=== PATIENT | female | born 1940 ===

== ENCOUNTER 2020-08-08 17:07 | Emergency (ER) | payer SELFPAY ==
[~2020-08-08] VITALS: Ht 167.6 cm; Wt 46.5 kg
[2020-08-08 18:19] LABS: BASO % 0 % (0-3); EOS % 0 % (0-3); HEMATOCRIT 40.5 % (36.0-47.0); HEMOGLOBIN 13.3 g/dL (12.0-15.5); LYMPH # 1.3 x10^3/uL (1.0-4.8); LYMPH % 11 % (24-48); MEAN CORPUSCULAR HEMOGLOBIN 30 pg (25-35); MEAN CORPUSCULAR HGB CONC 33 g/dL (31-37); MEAN CORPUSCULAR VOLUME 92 fL (79-100); MONO # 0.5 x10^3/uL (0.0-1.1); MONO % 4 % (0-9); NEUT # 10.2 x10^3uL (1.8-7.7); NEUT % 85 % (31-73); PLATELET COUNT 282 x10^3/uL (140-400); RED BLOOD COUNT 4.42 x10^6/uL (3.50-5.40); RED CELL DISTRIBUTION WIDTH 14.2 % (11.5-14.5); WHITE BLOOD COUNT 12.1 x10^3/uL (4.0-11.0)
[2020-08-08 18:25] LABS: CALCIUM 10.2 mg/dL (8.5-10.1); CREATININE 0.8 mg/dL (0.6-1.0); POTASSIUM 3.5 mmol/L (3.5-5.1)
--- NOTE | 2020-08-08 18:31 | RAD ---
Exam: CT head and cervical spine without contrast INDICATION: Altered mental status TECHNIQUE: Sequential axial images through the head and cervical spine were obtained without the admi nistration of IV contrast. Comparisons: None FINDINGS: Head: Small foci of air noted at the right basal ganglia. No focal parenchymal lesion or hemorrhage is iden tified. There is no midline shift or sulcal effacement. Patchy hypodensity in the periventricular white matter. No acute vascular territory infarction is desirae ntified. Goode-white distinction is preserved. The ventricular system is within normal limits without compression hydrocephalus. The basal cisterns are well maintained. The visualized portions of the paranasal sinuses and mastoid air cells are well-pneumatized. No acute fractures. Cervical spine: Vertebral body heights and alignment are well-maintained. Fracture to the cervical spine is not identified. Visualized paraspinal soft tissues are unremarkable. Multilevel spondylotic change in cervical spine with degenerative disc disease greatest at C3-C4 and C4-C5. IMPRESSION: 1. Small amount of air noted in the right cavernous sinus, which may be air tracking from the right jugular vein. No definite fractures identified. Recommend short-term follow-up imaging to ensure reso lution. 2. Negative CT C-spine for acute traumatic injury. Exposure: One or more of the following in the visualized dose reduction techniques were utilized for this examination: 1. Automated exposure control 2. Adjustment of the MA and/or KV according to patient size Use of iterative of reconstructive technique Electronically signed by: Anny Urbano MD (08/08/2020 6:28 PM) [facility]
[2020-08-08 18:38] LABS: ALBUMIN 4.3 g/dL (3.4-5.0); ALBUMIN/GLOBULIN RATIO 1.2 (1.0-1.7); PHOSPHORUS 3.3 mg/dL (2.6-4.7); TOTAL BILIRUBIN 0.6 mg/dL (0.2-1.0); TOTAL PROTEIN 7.8 g/dL (6.4-8.2)
--- NOTE | 2020-08-08 18:41 | RAD ---
Exam: CT of chest, abdomen and pelvis without contrast INDICATION: Altered mental status TECHNIQUE: Sequential axial images through the chest, abdomen and pelvis obtained without IV contrast . Sagittal and coronal reformatted images were reconstructed from the axial data and reviewed. Comparisons: None FINDINGS: Visualized portions of the thyroid are unremarkable. No enlarged mediastinal lymph nodes. Heart size is normal. No pericardial effusion. Thoracic aorta has a normal course and caliber. Pulmon sakshi artery is not enlarged. Airways are patent. No consolidation or pneumothorax. There is moderate centrilobular emphysematous c hange noted predominantly at the upper lungs. No suspicious lung nodules are identified. No pleural e ffusion or thickening. Evaluation of solid organs limited secondary to noncontrast technique. Liver, spleen, pancreas and adrenals are unremarkable. Gallbladder is distended and appears unremarka ble. No perinephric inflammation or hydronephrosis. No renal or ureteral calculi are identified. Bladder is decompressed not well evaluated. Zurita balloon is noted within the bladder. Diverticulosis in the sigmoid colon without evidence of acute diverticulitis. Appendix is nonidentifi ed. No free intra-abdominal air or fluid. No obstruction. Abdominal aorta has a normal course and caliber. No enlarged intra-abdominal lymph nodes are identified. No suspicious osseous lesions or acute fractures. IMPRESSION: No sequela of acute traumatic injury identified within the chest, abdomen Exposure: One or more of the following in the visualized dose reduction techniques were utilized for this examination: 1. Automated exposure control 2. Adjustment of the MA and/or KV according to patient size 3. Use of iterative of reconstructive technique Electronically signed by: Anny Urbano MD (08/08/2020 6:39 PM) [facility]
[2020-08-08] MEDS ORDERED: NORMAL SALINE IV SCH (18:45)
[2020-08-08 18:57] LABS: BACTERIA,URINE 0 /HPF (0-FEW); BILIRUBIN,URINE MOD (NEG); CLARITY,URINE HAZY; COLOR,URINE YELLOW; GLUCOSE,URINE NEG (NEG); NITRITE,URINE NEG (NEG); SQUAMOUS EPITHELIAL CELL,UR FEW /LPF; UROBILINOGEN,URINE 0.2 mg/dL (0.2 mg/dL)
--- NOTE | 2020-08-08 20:14 | PHYS DOC ---
Past History Past Medical History: COPD (AILEEN NATARAJAN APRN) Past Surgical History: Other Additional Past Surgical Histo: UnKnown (AILEEN NATARAJAN APRN) Alcohol Use: None Social History Narrative: unknown (AILEEN NATARAJAN APRN) Adult General Chief Complaint Chief Complaint: ALTERED MENTAL STATUS HPI HPI Patient is a 79-year-old female presents emergency department via EMS for altered mental status, reported by EMS sole skiver patient was found laying on floor by son at approximately 1630 today unknown downtime. Patient speaking incomprehensible words, no obvious trauma visualized on patient. Unknown health history on patient. Limited HPI related to patient's presentation of speaking incomprehensible words, has not been at this hospital in the past. (AILEEN NATARAJAN APRN) Review of Systems Review of Systems 14 body systems of review of systems have been reviewed. See HPI for pertinent positives and negative responses, otherwise all other systems are negative, nonpertinent or noncontributory. (AILEEN NATARAJAN APRN) Current Medications Current Medications Current Medications Medications (Trade) Dose Ordered Sig/Allie Start Time Stop Time Status Last Admin Dose Admin Sodium Chloride 1,770 ml @ 1,770 mls/hr Q1H 08/08/20 18:45 08/08/20 18:50 1,770 MLS/HR (AILEEN NATAARJAN APRN) Allergies Allergies Allergies Coded Allergies Type Severity Reaction Last Updated Verified Unable to Assess 08/08/20 No (AILEEN NATARAJAN APRN) Physical Exam Physical Exam Constitutional: Patient presents in no apparent distress, speaking in incomprehensible words, appears pale. HENT: Normocephalic, atraumatic, bilateral external ears normal, oropharynx moist, no oral exudates, nose normal. Oropharynx moist, pink, no infectious process appreciated, no uvular edema, no tonsillar edema, no peritonsillar edema, no laryngeal edema, no deep tissue infectious process appreciated, no lymphadenopathy of the head or neck appreciated, no drooling, no trismus. Bilateral nasal turbinates nonerythematous, no drainage appreciated. No areas of ecchymosis appreciated to the head, no skull depressions appreciated, no contusions of the skull appreciated. Eyes: PERRLA, EOMI, conjunctiva normal, no discharge. Neck: Normal range of motion, no tenderness, supple, no stridor. No midline spinal tenderness, no step-offs appreciated, no ecchymotic areas appreciated, no meningismus signs, no nuchal rigidity appreciated. Cardiovascular:Heart rate regular rhythm, no murmur, heart sounds S1-S2 auscultation. Lungs & Thorax: Bilateral breath sounds clear to auscultation all lung farias, no adventitious lung sounds appreciated. Abdomen: Bowel sounds normal, soft, no tenderness, no masses, no pulsatile masses. No areas of ecchymosis of the abdomen appreciated. Skin: Warm, dry, no erythema, no rash. Back: No tenderness elicited with palpation to bony prominences or adjacent structures of the back. Extremities: No tenderness, no cyanosis, no clubbing, ROM intact, no edema. Distal cap refill less than 2 seconds. Neurologic: Alert, orientation unable to obtain related to patient answering and incomprehensible sounds, patient is following commands, normal motor function, normal sensory function, no focal deficits noted. Psychologic: Unable to understand patient is incomprehensible words, psychologic assessment limited. (AILEEN NATARAJAN APRN) Current Patient Data Vital Signs Vital Signs Date Time Temp Pulse Resp B/P (MAP) Pulse Ox O2 Delivery O2 Flow Rate FiO2 08/08/20 19:15 88 16 121/68 (85) 95 Room Air 08/08/20 17:10 97.5 Lab Results Laboratory Tests Test 08/08/20 17:46 08/08/20 19:00 White Blood Count 12.1 x10^3/uL (4.0-11.0) H Red Blood Count 4.42 x10^6/uL (3.50-5.40) Hemoglobin 13.3 g/dL (12.0-15.5) Hematocrit 40.5 % (36.0-47.0) Mean Corpuscular Volume 92 fL (79-100) Mean Corpuscular Hemoglobin 30 pg (25-35) Mean Corpuscular Hemoglobin Concent 33 g/dL (31-37) Red Cell Distribution Width 14.2 % (11.5-14.5) Platelet Count 282 x10^3/uL (140-400) Neutrophils (%) (Auto) 85 % (31-73) H Lymphocytes (%) (Auto) 11 % (24-48) L Monocytes (%) (Auto) 4 % (0-9) Eosinophils (%) (Auto) 0 % (0-3) Basophils (%) (Auto) 0 % (0-3) Neutrophils # (Auto) 10.2 x10^3uL (1.8-7.7) H Lymphocytes # (Auto) 1.3 x10^3/uL (1.0-4.8) Monocytes # (Auto) 0.5 x10^3/uL (0.0-1.1) Eosinophils # (Auto) 0.0 x10^3/uL (0.0-0.7) Basophils # (Auto) 0.0 x10^3/uL (0.0-0.2) Urine Collection Type U cath Urine Color Yellow Urine Clarity Hazy Urine pH 6.0 Urine Specific [place] >=1.030 Urine Protein 30 mg/dl (NEG-TRACE) Urine Glucose (UA) Neg mg/dL (NEG) Urine Ketones (Stick) >=160 mg/dL (NEG) Urine Blood Mod (NEG) Urine Nitrite Neg (NEG) Urine Bilirubin Mod (NEG) Urine Urobilinogen Dipstick 0.2 mg/dL (0.2 mg/dL) Urine Leukocyte Esterase Trace (NEG) Urine RBC 6-10 /HPF (0-2) Urine WBC 11-20 /HPF (0-4) Urine Squamous Epithelial Cells Few /LPF Urine Bacteria 0 /HPF (0-FEW) Urine Mucus Mod /LPF Sodium Level 137 mmol/L (136-145) Potassium Level 3.5 mmol/L (3.5-5.1) Chloride Level 98 mmol/L (98-107) Carbon Dioxide Level 23 mmol/L (21-32) Anion Gap 16 (6-14) H Blood Urea Nitrogen 18 mg/dL (7-20) Creatinine 0.8 mg/dL (0.6-1.0) Estimated GFR (Cockcroft-Gault) 69.0 BUN/Creatinine Ratio 23 (6-20) H Glucose Level 135 mg/dL (70-99) H Lactic Acid Level 2.4 mmol/L (0.4-2.0) H Calcium Level 10.2 mg/dL (8.5-10.1) H Phosphorus Level 3.3 mg/dL (2.6-4.7) Magnesium Level 2.0 mg/dL (1.8-2.4) Total Bilirubin 0.6 mg/dL (0.2-1.0) Aspartate Amino Transferase (AST) 43 U/L (15-37) H Alanine Aminotransferase (ALT) 28 U/L (14-59) Alkaline Phosphatase 49 U/L (46-116) Troponin I Quantitative 1.481 ng/mL (0-0.055) H YS-Aaq-B-Type Natriuretic Peptide 9185 pg/mL (0-449) H Total Protein 7.8 g/dL (6.4-8.2) Albumin 4.3 g/dL (3.4-5.0) Albumin/Globulin Ratio 1.2 (1.0-1.7) Lipase 51 U/L (73-393) L Creatine Kinase 595 U/L (26-192) H Creatine Kinase MB (Mass) 5.7 ng/mL (0.0-3.6) H Creatine Kinase MB Relative Index 1.0 % (0-4) C-Reactive Protein 4.2 mg/L (0-3.3) H (AILEEN NTAARAJAN APRN) EKG EKG EKG performed at 1842 by house respiratory therapy staff, shows heart rate 85 bpm normal sinus rhythm without ectopy, OK interval 0.148, QTc interval 0.504, no acute STEMI, no ACS, no acute ischemia appreciated, EKG interpreted by ED attending physician Dr. Eugene. (AILEEN NATARAJAN APRN) Radiology/Procedures Radiology/Procedures PATIENT: BRAVO ALEXANDERACCOUNT: [id number] : 1940 LOCATION: ER AGE: 79 SEX: F EXAM STATUS: REG ER ORD. PHYSICIAN: AILEEN NATARAJAN APRN REASON: ALTERED MENTAL STATUS FOUND ON FLOOR, confusion, headache, neck p PROCEDURE: CT HEAD AND CERVICAL SPINE WO Exam: CT head and cervical spine without contrast INDICATION: Altered mental status TECHNIQUE: Sequential axial images through the head and cervical spine were obtained without the administration of IV contrast. Comparisons: None FINDINGS: Head: Small foci of air noted at the right basal ganglia. No focal parenchymal lesion or hemorrhage is identified. There is no midline shift or sulcal effacement. Patchy hypodensity in the periventricular white matter. No acute vascular territory infarction is identified. Goode-white distinction is preserved. The ventricular system is within normal limits without compression hydrocepha manuel. The basal cisterns are well maintained. The visualized portions of the paranasal sinuses and mastoid air cells are well-pneumatized. No acute fractures. Cervical spine: Vertebral body heights and alignment are well-maintained. Fracture to the cervical spine is not identified. Visualized paraspinal soft tissues are unremarkable. Multilevel spondylotic change in cervical spine with degenerative disc disease greatest at C3-C4 and C4-C5. IMPRESSION: 1. Small amount of air noted in the right cavernous sinus, which may be air tracking from the right jugular vein. No definite fractures identified. Recommend short-term follow-up imaging to ensure resolution. 2. Negative CT C-spine for acute traumatic injury. Exposure: One or more of the following in the visualized dose reduction techniques were utilized for this examination: 1. Automated exposure control 2. Adjustment of the MA and/or KV according to patient size Use of iterative of reconstructive technique Electronically signed by: Anny Barton MD (08/08/2020 6:28 PM) [facility] DICTATED AND SIGNED BY: ANNY BARTON MD DATE: 08/08/201822 CC: AILEEN NATARAJAN APRN; PCP,UNKNOWN ~MTH0 0 PATIENT: BRAVO ALEXANDERACCOUNT: [id number] : 1940 LOCATION: ER AGE: 79 SEX: F EXAM STATUS: REG ER ORD. PHYSICIAN: AILEEN NATARAJAN APRN REASON: ALTERED MENTAL STATUS FOUND ON FLOOR, weakness, shaky, confusion PROCEDURE: CT CHEST ABDOMEN PELVIS WO Exam: CT of chest, abdomen and pelvis without contrast INDICATION: Altered mental status TECHNIQUE: Sequential axial images through the chest, abdomen and pelvis obtained without IV contrast. Sagittal and coronal reformatted images were reconstructed from the axial data and reviewed. Comparisons: None FINDINGS: Visualized portions of the thyroid are unremarkable. No enlarged mediastinal lymph nodes. Heart size is normal. No pericardial effusion. Thoracic aorta has a normal course and caliber. Pulmonary artery is not enlarged. Airways are patent. No consolidation or pneumothorax. There is moderate centrilobular emphysematous change noted predominantly at the upper lungs. No suspicious lung nodules are identified. No pleural effusion or thickening. Evaluation of solid organs limited secondary to noncontrast technique. Liver, spleen, pancreas and adrenals are unremarkable. Gallbladder is distended and appears unremarkable. No perinephric inflammation or hydronephrosis. No renal or ureteral calculi are identified. Bladder is decompressed not well evaluated. Zurita balloon is noted within the bladder. Diverticulosis in the sigmoid colon without evidence of acute diverticulitis. Appendix is nonidentified. No free intra-abdominal air or fluid. No obstruction. Abdominal aorta has a normal course and caliber. No enlarged intra-abdominal lymph nodes are identified. No suspicious osseous lesions or acute fractures. IMPRESSION: No sequela of acute traumatic injury identified within the chest, abdomen Exposure: One or more of the following in the visualized dose reduction techniques were utilized for this examination: 1. Automated exposure control 2. Adjustment of the MA and/or KV according to patient size 3. Use of iterative of reconstructive technique Electronically signed by: Anny Barton MD (08/08/2020 6:39 PM) [facility] (AILEEN NATARAJAN APRN) Heart Score C/O Chest Pain: N/A HEART Score for Chest Pain: HEART Score for Chest Pain Response (Comments) Value History Moderately Suspicious 1 ECG Normal 0 Age > 65 2 Risk Factors No Risk Factors 0 Troponin >3 x Normal Limit 2 Total 5 Risk Factors: Risk Factors: DM, Current or recent (<one month) smoker, HTN, HLP, family history of CAD, obesity. Risk Scores: Risk Factors: DM, Current or recent (<one month) smoker, HTN, HLP, family history of CAD, obesity. (AILEEN NATARAJAN APRN) Course & Med Decision Making Course & Med Decision Making Pertinent Labs and Imaging studies reviewed. (See chart for details) 79-year-old female, vital signs reviewed, presents emergency department concerning being found laying on the floor for unknown amount of time and altered mental status. Patient's physical exam unknown remarkable for acute trauma, however to patient presentation and EMS report a CT head C-spine chest abdomen pelvis was ordered, EKG, cardiopulmonary work-up ordered, rhabdomyolysis work-up ordered. Patient will follow commands, however related to patient's acute physical presentation in the ED today a Zurita to dependent drainage was inserted to obtain a sterile catch urine to rule out infectious process. Patient's grandson arrived and is at bedside, patient's grandson unable to give further information regarding patient's medications, past medical history other than "she has COPD ". No other health information obtained. EKG unremarkable, however elevated troponin of 1.418, elevated CK of 595, elevated CK-MB of 5.7, elevated CRP of 4.2, consistent with rhabdomyolysis. Patient's lactic acid 2.4, patient had a slightly elevated calcium at 10.2, patient's NT proBNP 9185. Patient does have history of COPD, patient's lung sounds are clear, CT chest unremarkable and nonconcerning for acute infectious process of the lungs. Patient CT head and C-spine concerning for possible air in cavernous sinus. Discussed findings with patient's grandson who requested patient be admitted to [facility]. Called and discussed patient case with transfer center [employer] Operator [facility] who stated Dr. Herron will accept patient to ICU for admission, Dr. Herron recommended a recheck of CK, if trending downward no further treatment, however if trending upward recommends 1 more liter of normal saline. Also recommended heparin bolus and drip if no indication of bleeding. No acute bleeding noted on CT studies, patient remained hemodynamically stable during ER stay, the patient's heart rate has not tachycardic, the patient's H&H are within normal limits, other is no supporting signs, labs, or symptoms that would indicate acute bleeding, will initiate heparin drip and bolus related to this and Dr. Herron's request. Dr. Herron also requested CT imaging be placed on cloud. Called irrigation technician to have CT images placed on file. Discussed with patient's grandson patient has been accepted to [facility] for admission. Patient's grandson is amendable to this. Awaiting CK results at this time, awaiting transfer to [facility] via EMS at this time. (AILEEN NATARAJAN APRN) Dragon Disclaimer Dragon Disclaimer This electronic medical record was generated, in whole or in part, using a voice recognition dictation system. (AILEEN NATARAJAN APRN) Departure Departure: Impression: Primary Impression: Altered mental status Additional Impressions: Elevated troponin Elevated CK Abnormal CT scan Disposition: [address] [place] [address] (Patient accepted in transfer to [facility] ICU by Dr. Herron.) Condition: GUARDED Referrals: PCP,UNKNOWN (PCP) Attending Signature Attending Signature I have participated in the care of this patient and I have reviewed and agree with all pertinent clinical information above including history, exam, and recommendations. (MIRTHA EUGENE MD) Problem Qualifiers Primary Impression: Altered mental status Altered mental status type: unspecified Qualified Codes: R41.82 - Altered mental status, unspecified AILEEN NATARAJAN APRN Aug 08, 2020 20:14 MIRTHA EUGENE MD Aug 09, 2020 06:52
--- NOTE | 2020-08-08 20:17 | EKG ---
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
[2020-08-08] MEDS ORDERED: HEPARIN for IV BOLUS 10,000 UNIT/10 ML VIAL. IV ONE (20:30)
[2020-08-08] MEDS ORDERED: HEPARIN for IV BOLUS 10,000 UNIT/10 ML VIAL. IV PRN (20:30)
[2020-08-08] MEDS ORDERED: HEPARIN 25,000UTS/250ML PREMIX 250 ML IV PRN (20:30)
[2020-08-08 20:50] VITALS: BP 112/54
== END 2020-08-08 21:48 | disposition short-term general hospital (02) ==
LOC: ER 17:07
DX: R41.82 Altered mental status, unspecified (principal); R77.8 Other specified abnormalities of plasma proteins; R94.8 Abnormal results of function studies of other organs and systems; R74.8 Abnormal levels of other serum enzymes; M50.30 Other cervical disc degeneration, unspecified cervical region; K57.30 Diverticulosis of large intestine without perforation or abscess without bleeding; J44.9 Chronic obstructive pulmonary disease, unspecified
CPT/HCPCS: 36415; 51702; 70450; 71250; 72125; 74176; 80053; 81001; 82550; 82553; 83605; 83690; 83735; 83880; 84100; 84484; 85025; 85610; 85730; 86140; 87040; 87086; 93005; 96361; 96365; 96376; 99285; J1644; J7030